=== PATIENT | female | born 1960 | race African-American/Black ===

== ENCOUNTER 2017-06-04 07:47 | Emergency (ER) | payer MEDICARE, MEDICAID ==
[~2017-06-04] VITALS: Ht 167.6 cm; Wt 99.8 kg
[~2017-06-04 07:47] MED LIST: CARV25TA OR; KCL PO; LIPITOR PO; NITR-48 PO; NORCO PO; PLAVIX PO; RAMI5CAP40 PO; XANAX PO
[2017-06-04] MEDS ORDERED: SODIUM CHLORIDE 0.9% 1,000 ML IV ONE (08:34)
[2017-06-04] MEDS ORDERED: ASPirin 325 MG TAB PO ONE (08:45)
[2017-06-04] MEDS ORDERED: NITROGLYCERIN 0.4 MG SL TAB SL ONE (08:45)
[2017-06-04 09:00] VITALS: BP 138/74
[2017-06-04 09:29] LABS: Hematocrit 41.4 % (36.0-46.0); Hemoglobin 13.5 g/dL (12.2-16.2); Mean Corpuscular Hemoglobin 29.4 pg (28.0-32.0); Mean Corpuscular Hgb Conc. 32.5 g/dL (32.0-36.0); Mean Corpuscular Volume 90.4 fL (80.0-100.0); Platelet Count (auto) 168 10^3/uL (140-450); Red Blood Cells 4.58 10^6/uL (4.0-5.20); Red Cell Distribution Width 16.4 % (11.8-14.3); White Blood Cell 9.8 10^3/uL (4.4-10.8)
[2017-06-04] MEDS ORDERED: ONDANSETRON HCL 4 MG/2 ML VIAL IV ONE (09:30)
[2017-06-04] MEDS ORDERED: HYDROcodone-ACET 10/325MG TAB PO ONE (09:30)
[2017-06-04 09:32] LABS: Band Neutrophils % (manual) 0; Basophils % (manual) 0 (0.0-2.0); Blast Cells 0; Eosinophils % (manual) 0 (0-7); Metamyelocytes % 0; Myelocytes % 0; Promyelocytes % 0; Reactive Lymphocytes 0
[2017-06-04 09:34] LABS: Alanine Aminotransferase 30 U/L (13-56); Albumin 3.9 g/dL (3.4-5.0); Alkaline Phosphatase 222 U/L (45-117); Anion Gap 6 (5-15); Aspartate Aminotransferase 25 U/L (15-37); BUN/Creatinine Ratio 12.9; Bilirubin, Total 0.1 mg/dL (0.2-1.0); Blood Urea Nitrogen 11 mg/dL (7-18); Calcium 8.9 mg/dL (8.5-10.1); Carbon Dioxide 27 mmol/L (21-32); Chloride 110 mmol/L (98-107); GFR African American 89 mL/min; GFR Non-African American 74 mL/min; Glucose 81 mg/dL (74-106); Potassium 3.8 mmol/L (3.5-5.1); Sodium 143 mmol/L (136-145)
[2017-06-04 09:53] LABS: Lymphocytes % (manual) 18 (10.0-50.0); Monocytes % (manual) 2 (0-12)
== END 2017-06-04 10:22 | disposition left against medical advice (07) ==
LOC: EDBD 07:47 → ER 07:47
DX: R07.89 Other chest pain (principal); I25.10 Atherosclerotic heart disease of native coronary artery without angina pectoris; I50.9 Heart failure, unspecified; E78.5 Hyperlipidemia, unspecified; F17.210 Nicotine dependence, cigarettes, uncomplicated; I25.2 Old myocardial infarction; Z86.718 Personal history of other venous thrombosis and embolism; Z88.0 Allergy status to penicillin; Z88.6 Allergy status to analgesic agent
CPT/HCPCS: 36415; 71045; 80053; 83880; 84484; 85007; 85027; 93005; 96360; 96361; 96372; 99285; J2405; J7030

== ENCOUNTER 2017-12-08 02:30 | Inpatient (IN) | payer MEDICARE, MEDICAID ==
[~2017-12-08] VITALS: Ht 167.6 cm; Wt 91.0 kg
[2017-12-08] MEDS ORDERED: methylPREDNISolone SOD SUCC 125 MG/2 ML VL ONE (02:48)
[2017-12-08 02:58] LABS: Basophils # (auto) 0.1 uL; Basophils % (auto) 1.2 % (0.0-2.0); Eosinophils # (auto) 0.1 uL; Eosinophils % (auto) 1.1 % (0.0-7.0); Hematocrit 39.7 % (36.0-46.0); Hemoglobin 12.7 g/dL (12.2-16.2); Lymphocytes # (auto) 2.7 uL; Lymphocytes % (auto) 25.3 % (10.0-50.0); Mean Corpuscular Hemoglobin 28.7 pg (28.0-32.0); Mean Corpuscular Hgb Conc. 32.1 g/dL (32.0-36.0); Mean Corpuscular Volume 89.4 fL (80.0-100.0); Monocytes # (auto) 0.8 uL; Monocytes % (auto) 7.5 % (0.0-12.0); Neutrophils # (auto) 6.9 uL; Neutrophils % (auto) 64.9 % (37.0-80.0); Platelet Count (auto) 232 10^3/uL (140-450); Red Blood Cells 4.44 10^6/uL (4.0-5.20); Red Cell Distribution Width 15.7 % (11.8-14.3); White Blood Cell 10.6 10^3/uL (4.4-10.8)
[2017-12-08] MEDS ORDERED: IPRATROPIUM BROM 0.5 MG/2.5ML INH SOL NEB ONE (03:00)
[2017-12-08] MEDS ORDERED: ALBUTEROL SULF 2.5 MG/0.5ML(0.5%) NEB SOLN NEB ONE (03:00)
[2017-12-08] MEDS ORDERED: methylPREDNISolone SOD SUCC 125 MG/2 ML VL IV ONE (03:00)
[2017-12-08 03:13] LABS: INR 0.98 (0.9-1.15); Partial Thromboplastin Time 22.4 sec (23.78-33.04); Prothrombin Time 10.5 sec (9.27-12.13)
[2017-12-08 03:21] LABS: Alanine Aminotransferase 45 U/L (13-56); Albumin 3.7 g/dL (3.4-5.0); Alkaline Phosphatase 210 U/L (45-117); Anion Gap 9 (5-15); Aspartate Aminotransferase 57 U/L (15-37); BUN/Creatinine Ratio 9.1; Bilirubin, Total 0.3 mg/dL (0.2-1.0); Blood Urea Nitrogen 8 mg/dL (7-18); Calcium 8.5 mg/dL (8.5-10.1); Carbon Dioxide 22 mmol/L (21-32); Chloride 113 mmol/L (98-107); GFR African American 85 mL/min; GFR Non-African American 71 mL/min; Glucose 140 mg/dL (74-106); Magnesium 2.4 mg/dL (1.6-2.6); Potassium 3.8 mmol/L (3.5-5.1); Sodium 144 mmol/L (136-145); Total Protein 7.6 g/dL (6.4-8.2)
[2017-12-08] MEDS: FUROSEMIDE 20 MG/2 ML VIAL IV ONE ×2 (04:17→05:05)
[2017-12-08] MEDS ORDERED: MEPERIDINE HCL (25 MG/ML) 1ML VIAL IV ONE (04:30)
[2017-12-08 04:41] LABS: Urine Bacteria FEW /hpf (None Seen); Urine Blood Negative /uL (Negative); Urine Hyaline Cast FEW /lpf (0 - 2); Urine Specific Gravity 1.014 (1.001-1.035); Urine WBC 5 /hpf (0 - 5)
[2017-12-08 04:52] LABS: Alcohol, Urine < 3.0 mg/dL (0-5); Amphetamine Screen, Urine NEGATIVE (NEGATIVE); Barbiturate Scree,Urine NEGATIVE (NEGATIVE); Benzodiazephine Screen, Urine POSITIVE (NEGATIVE); Cannabinoid Screen, Urine NEGATIVE (NEGATIVE); Cocaine Screen, Urine NEGATIVE (NEGATIVE); Opiate Scree,Urine NEGATIVE (NEGATIVE); Phencyclidine Screen, Urine NEGATIVE (NEGATIVE)
[2017-12-08] MEDS ORDERED: LORazepam 2MG/ML-1ML VIAL IV ONE (05:30)
[2017-12-08] MEDS ORDERED: NITROGLYCERIN 0.4 MG SL TAB SL PRN (06:15)
[2017-12-08] MEDS ORDERED: MORPHINE SULFATE 4 MG/ML SYR/VIAL IV PRN (06:15)
[2017-12-08] MEDS ORDERED: ALBUTEROL SULF 2.5 MG/0.5ML(0.5%) NEB SOLN NEB PRN (06:15)
[2017-12-08] MEDS: ONDANSETRON HCL 4 MG/2 ML VIAL IV PRN (07:52)
[2017-12-08 08:59] VITALS: BP 135/72
[2017-12-08 09:28] VITALS: BP 116/70
[2017-12-08 09:30] VITALS: BP 135/72
[2017-12-08] MEDS ORDERED: FUROSEMIDE 20 MG/2 ML VIAL IV SCH (10:00)
[2017-12-08] MEDS: ASPirin 81 mg TAB PO SCH (10:00)
[2017-12-08] MEDS: HYDROcodone-ACET 5/325MG TAB PO PRN ×3 (10:24→18:41)
[2017-12-08] MEDS: CLOPIDOGREL BISULFATE 75 MG TAB PO SCH (10:24)
[2017-12-08] MEDS: ENOXAPARIN SOD 40 MG/0.4 ML SYRINGE SC SCH (10:24)
[2017-12-08] MEDS: FAMOTIDINE 20 MG TAB PO SCH ×2 (10:24→21:28)
[2017-12-08] MEDS: RAMIPRIL 2.5 MG CAP PO SCH (10:26)
[2017-12-08] MEDS: LEVOFLOXACIN 500MG 100 ML IV SCH (10:26)
[2017-12-08] MEDS: CARVEDILOL 12.5 MG TAB PO SCH (10:27)
[2017-12-08 12:00] VITALS: BP 131/72
[2017-12-08] MEDS: ALPRAZolam 0.5 MG TAB PO PRN (14:31)
[2017-12-08] MEDS ORDERED: OPTISON 3ml Vial for INJ IV ONE (16:10)
[2017-12-08 17:00] VITALS: BP 101/64
[2017-12-08] MEDS: ATORVASTATIN 20 MG TAB PO SCH (21:28)
[2017-12-08] MEDS: OXYCODONE W/ ACETAMINOPHEN 5/325MG TABLET PO PRN (21:29)
[2017-12-08 22:00] VITALS: BP 109/57
[2017-12-08] MEDS: TEMAZEPAM 15 MG CAP PO PRN (22:47)
[2017-12-09] MEDS: ACETAMINOPHEN 325 MG TAB PO PRN ×2 (02:34→11:14)
[2017-12-09] MEDS: ALPRAZolam 0.5 MG TAB PO PRN ×2 (02:34→16:01)
[2017-12-09 05:00] VITALS: BP 100/55
[2017-12-09 06:52] LABS: Basophils # (auto) 0.1 uL; Basophils % (auto) 0.3 % (0.0-2.0); Eosinophils # (auto) 0 uL; Hematocrit 39.7 % (36.0-46.0); Hemoglobin 12.5 g/dL (12.2-16.2); Lymphocytes # (auto) 2.2 uL; Lymphocytes % (auto) 12.1 % (10.0-50.0); Mean Corpuscular Hemoglobin 28.3 pg (28.0-32.0); Mean Corpuscular Hgb Conc. 31.6 g/dL (32.0-36.0); Mean Corpuscular Volume 89.6 fL (80.0-100.0); Monocytes # (auto) 1.6 uL; Monocytes % (auto) 8.7 % (0.0-12.0); Neutrophils # (auto) 14.4 uL; Neutrophils % (auto) 78.9 % (37.0-80.0); Platelet Count (auto) 242 10^3/uL (140-450); Red Blood Cells 4.43 10^6/uL (4.0-5.20); Red Cell Distribution Width 16.1 % (11.8-14.3); White Blood Cell 18.2 10^3/uL (4.4-10.8)
[2017-12-09 07:10] LABS: Albumin 3.4 g/dL (3.4-5.0); BUN/Creatinine Ratio 15.5; Bilirubin, Total 0.4 mg/dL (0.2-1.0); Calcium 8.6 mg/dL (8.5-10.1); Potassium 3.8 mmol/L (3.5-5.1); Total Protein 7.5 g/dL (6.4-8.2)
[2017-12-09] MEDS: ASPirin 81 mg TAB PO SCH (08:57)
[2017-12-09 09:00] VITALS: BP 105/52
[2017-12-09] MEDS: LEVOFLOXACIN 500MG 100 ML IV SCH (09:43)
[2017-12-09] MEDS: FUROSEMIDE 20 MG/2 ML VIAL IV SCH (09:43)
[2017-12-09] MEDS: RAMIPRIL 2.5 MG CAP PO SCH (09:43)
[2017-12-09] MEDS: POTASSIUM CHL 20 Meq TABLET PO SCH (09:44)
[2017-12-09] MEDS: FAMOTIDINE 20 MG TAB PO SCH ×2 (09:44→21:49)
[2017-12-09] MEDS: CARVEDILOL 12.5 MG TAB PO SCH (09:44)
[2017-12-09] MEDS: CLOPIDOGREL BISULFATE 75 MG TAB PO SCH (09:44)
[2017-12-09] MEDS: ENOXAPARIN SOD 40 MG/0.4 ML SYRINGE SC SCH (09:45)
[2017-12-09 11:41] VITALS: BP 110/58
[2017-12-09] MEDS: OXYCODONE W/ ACETAMINOPHEN 5/325MG TABLET PO PRN ×2 (11:42→20:52)
[2017-12-09 17:00] VITALS: BP 104/65
[2017-12-09] MEDS: ATORVASTATIN 20 MG TAB PO SCH (21:48)
[2017-12-09 22:00] VITALS: BP 114/85
[2017-12-10] VITALS (7 sets, daily range): BP systolic 89–114; BP diastolic 58–75
[2017-12-10 05:54] LABS: Basophils # (auto) 0.1 uL; Basophils % (auto) 0.8 % (0.0-2.0); Eosinophils # (auto) 0.1 uL; Eosinophils % (auto) 0.5 % (0.0-7.0); Hematocrit 40.1 % (36.0-46.0); Lymphocytes # (auto) 3.5 uL; Lymphocytes % (auto) 32.8 % (10.0-50.0); Mean Corpuscular Hemoglobin 29.5 pg (28.0-32.0); Mean Corpuscular Hgb Conc. 32.5 g/dL (32.0-36.0); Mean Corpuscular Volume 90.9 fL (80.0-100.0); Monocytes # (auto) 1.2 uL; Neutrophils # (auto) 5.9 uL; Neutrophils % (auto) 54.9 % (37.0-80.0); Nucleated Red Blood Cells % 0.2 %; Platelet Count (auto) 224 10^3/uL (140-450); Red Blood Cells 4.41 10^6/uL (4.0-5.20); White Blood Cell 10.8 10^3/uL (4.4-10.8)
[2017-12-10 06:12] LABS: BUN/Creatinine Ratio 23.8; Calcium 8.3 mg/dL (8.5-10.1); Potassium 3.7 mmol/L (3.5-5.1)
[2017-12-10] MEDS ORDERED: LIDOCAINE 2%HCL (LOCAL ANESTH.) INJ 10ml MDV ONE (07:22)
[2017-12-10] MEDS ORDERED: IOHEXOL 350 MG/ML 100ML IJ ONE ×2 (07:22→08:58)
[2017-12-10] MEDS ORDERED: ANGIOMAX 250 MG VIAL IV ONE (08:32)
[2017-12-10] MEDS ORDERED: ATROPINE SULF 1 MG/10ml SYR ONE (08:33)
[2017-12-10] MEDS ORDERED: fentaNYL CITRATE 100 MCG/2 ML VL ONE (08:33)
[2017-12-10] MEDS ORDERED: SODIUM CHL 0.9% 50 ML ONE (08:33)
[2017-12-10] MEDS ORDERED: EPINEPHrine HCL 1 MG/10 ML SYRG ONE (08:33)
[2017-12-10] MEDS ORDERED: MIDAZOLAM HCL 1MG/1ML-2 ML VIAL ONE (08:33)
[2017-12-10] MEDS: OXYCODONE W/ ACETAMINOPHEN 5/325MG TABLET PO PRN (10:12)
[2017-12-10] MEDS: LEVOFLOXACIN 500MG 100 ML IV SCH (10:21)
[2017-12-10] MEDS: CLOPIDOGREL BISULFATE 75 MG TAB PO SCH (10:22)
[2017-12-10] MEDS: ASPirin 81 mg TAB PO SCH (10:22)
[2017-12-10] MEDS: RAMIPRIL 2.5 MG CAP PO SCH (10:22)
[2017-12-10] MEDS: FAMOTIDINE 20 MG TAB PO SCH ×2 (10:22→21:32)
[2017-12-10] MEDS: POTASSIUM CHL 20 Meq TABLET PO SCH (10:22)
[2017-12-10] MEDS: CARVEDILOL 12.5 MG TAB PO SCH (10:23)
[2017-12-10] MEDS: ONDANSETRON HCL 4 MG/2 ML VIAL IV PRN ×2 (10:37→18:13)
[2017-12-10] MEDS: FUROSEMIDE 20 MG/2 ML VIAL IV SCH (10:38)
[2017-12-10] MEDS ORDERED: OXYCODONE W/ ACETAMINOPHEN 5/325MG TABLET PO PRN (11:30)
[2017-12-10] MEDS: MEPERIDINE HCL (25 MG/ML) 1ML VIAL IV PRN ×2 (11:30→21:25)
[2017-12-10] MEDS: ALPRAZolam 0.5 MG TAB PO PRN ×2 (13:43)
[2017-12-10] MEDS: DOCUSATE SOD 100 MG CAP PO SCH (21:32)
[2017-12-10] MEDS: ATORVASTATIN 20 MG TAB PO SCH (21:32)
[2017-12-11] MEDS: TEMAZEPAM 15 MG CAP PO PRN (00:24)
[2017-12-11 05:00] VITALS: BP 115/60
[2017-12-11] MEDS: MEPERIDINE HCL (25 MG/ML) 1ML VIAL IV PRN ×2 (05:18→09:49)
[2017-12-11 07:02] VITALS: BP 115/60
[2017-12-11 09:00] VITALS: BP 112/65
[2017-12-11] MEDS: FAMOTIDINE 20 MG TAB PO SCH (09:43)
[2017-12-11] MEDS: POTASSIUM CHL 20 Meq TABLET PO SCH (09:43)
[2017-12-11] MEDS: DOCUSATE SOD 100 MG CAP PO SCH (09:43)
[2017-12-11] MEDS: ASPirin 81 mg TAB PO SCH (09:43)
[2017-12-11] MEDS: CLOPIDOGREL BISULFATE 75 MG TAB PO SCH (09:43)
[2017-12-11] MEDS ORDERED: CLOP75TA28 PO (09:55)
[2017-12-11] MEDS ORDERED: RAMI5CAP40 PO (09:55)
[2017-12-11] MEDS ORDERED: POTA20TA53 PO (09:55)
[2017-12-11] MEDS ORDERED: ATOR20TA50 PO (09:55)
[2017-12-11] MEDS ORDERED: CAR125T PO (09:55)
[2017-12-11] MEDS ORDERED: FURO40TA PO (09:55)
[2017-12-11] MEDS ORDERED: ASPI81CH43 PO (09:55)
[2017-12-11] MEDS ORDERED: CARVEDILOL 12.5 MG TAB PO SCH (10:00)
[2017-12-11] MEDS ORDERED: FUROSEMIDE 40 MG TAB PO SCH (10:00)
[2017-12-11 13:00] VITALS: BP 110/58
[2017-12-11 13:26] VITALS: BP 112/65
== END 2017-12-11 14:50 | disposition home or self-care (01) | DRG 246 ==
LOC: EDBD 02:30 → ER 02:32 → TELE 02:33 → TELE-WESTW 09:41
PROVIDERS: ADMIT Nurse Practitioner; ATTEND Internal Medicine
PROC: 5A09357 Assistance with Respiratory Ventilation, Less than 24 Consecutive Hours, Continuous Positive Airway Pressure (ICD-10-PCS; 2017-12-08)
PROC: 027034Z Dilation of Coronary Artery, One Artery with Drug-eluting Intraluminal Device, Percutaneous Approach (ICD-10-PCS; principal; 2017-12-10)
PROC: 4A023N7 Measurement of Cardiac Sampling and Pressure, Left Heart, Percutaneous Approach (ICD-10-PCS; 2017-12-10)
PROC: B2111ZZ Fluoroscopy of Multiple Coronary Arteries using Low Osmolar Contrast (ICD-10-PCS; 2017-12-10)
PROC: B2151ZZ Fluoroscopy of Left Heart using Low Osmolar Contrast (ICD-10-PCS; 2017-12-10)
DX: T82.855A Stenosis of coronary artery stent, initial encounter (principal); I50.43 Acute on chronic combined systolic (congestive) and diastolic (congestive) heart failure; J96.00 Acute respiratory failure, unspecified whether with hypoxia or hypercapnia; J44.1 Chronic obstructive pulmonary disease with (acute) exacerbation; N39.0 Urinary tract infection, site not specified; F11.20 Opioid dependence, uncomplicated; I50.82 Biventricular heart failure; I25.10 Atherosclerotic heart disease of native coronary artery without angina pectoris; I11.0 Hypertensive heart disease with heart failure; E66.9 Obesity, unspecified; E78.5 Hyperlipidemia, unspecified; F32.9 Major depressive disorder, single episode, unspecified; Z95.5 Presence of coronary angioplasty implant and graft; F17.210 Nicotine dependence, cigarettes, uncomplicated; F41.9 Anxiety disorder, unspecified; I25.2 Old myocardial infarction; Z83.3 Family history of diabetes mellitus; Y83.1 Surgical operation with implant of artificial internal device as the cause of abnormal reaction of the patient, or of later complication, without mention of misadventure at the time of the procedure; T38.0X5A Adverse effect of glucocorticoids and synthetic analogues, initial encounter; Z95.810 Presence of automatic (implantable) cardiac defibrillator; Z82.49 Family history of ischemic heart disease and other diseases of the circulatory system; M79.7 Fibromyalgia; I25.5 Ischemic cardiomyopathy; G89.4 Chronic pain syndrome; Z80.9 Family history of malignant neoplasm, unspecified; Z88.6 Allergy status to analgesic agent; Z88.0 Allergy status to penicillin; Z79.82 Long term (current) use of aspirin; Z79.899 Other long term (current) drug therapy; Z68.32 Body mass index [BMI] 32.0-32.9, adult; Y92.89 Other specified places as the place of occurrence of the external cause
CPT/HCPCS: 36415; 36600; 71045; 80048; 80053; 80061; 80307; 81001; 82805; 83036; 83735; 83880; 84484; 85025; 85379; 85610; 85730; 87086; 92928; 93005; 93306; 93458; 94640; 94660; 94761; 96365; 96375; 97163; 99152; A6257; C1874; J1956; J2001; J2250; J2405; Q9956

== ENCOUNTER 2018-10-05 13:17 | Inpatient (IN) | payer MEDICARE, MEDICAID | END 2018-10-07 16:12 | disposition still patient (30) | LOC: ER 13:17 → TELE 18:45 → DOU IN ICU 20:50 | DX: I47.2 Ventricular tachycardia (principal); N39.0 Urinary tract infection, site not specified; I50.40 Unspecified combined systolic (congestive) and diastolic (congestive) heart failure; F11.20 Opioid dependence, uncomplicated; I25.5 Ischemic cardiomyopathy; G89.29 Other chronic pain; M54.9 Dorsalgia, unspecified; E78.00 Pure hypercholesterolemia, unspecified; Z79.891 Long term (current) use of opiate analgesic; E66.9 Obesity, unspecified; E78.5 Hyperlipidemia, unspecified; F32.9 Major depressive disorder, single episode, unspecified; F41.9 Anxiety disorder, unspecified; Z79.02 Long term (current) use of antithrombotics/antiplatelets; Z79.82 Long term (current) use of aspirin ==

== ENCOUNTER 2019-02-12 16:27 | Emergency (ER) | payer MEDICARE, MEDICAID ==
[~2019-02-12] VITALS: Ht 167.6 cm; Wt 87.5 kg
[~2019-02-12 16:27] MED LIST changes: +AMIO200T4 PO; +ATOR20TA50 PO; +CAR125T PO; -CARV25TA OR; +CLOP75TA28 PO; +FURO1TAB31 PO; -KCL PO; +MEX150C PO; -NITR-48 PO; -NORCO PO; +PERCOT PO; -PLAVIX PO; +POTA-220 PO
[2019-02-12 17:19] LABS: Basophils # (auto) 0.1 uL; Basophils % (auto) 0.5 % (0.0-2.0); Eosinophils # (auto) 0.1 uL; Eosinophils % (auto) 0.7 % (0.0-7.0); Hematocrit 37.9 % (36.0-46.0); Hemoglobin 12.1 g/dL (12.2-16.2); Lymphocytes # (auto) 2.6 uL; Lymphocytes % (auto) 25.4 % (10.0-50.0); Mean Corpuscular Hemoglobin 28.3 pg (28.0-32.0); Mean Corpuscular Volume 88.4 fL (80.0-100.0); Monocytes % (auto) 9.5 % (0.0-12.0); Neutrophils # (auto) 6.7 uL; Neutrophils % (auto) 63.9 % (37.0-80.0); Platelet Count (auto) 241 10^3/uL (140-450); Red Blood Cells 4.29 10^6/uL (4.0-5.20); Red Cell Distribution Width 19.4 % (11.8-14.3); White Blood Cell 10.4 10^3/uL (4.4-10.8)
[2019-02-12 18:01] LABS: Alanine Aminotransferase 28 U/L (13-56); Anion Gap 10 (5-15); Aspartate Aminotransferase 28 U/L (15-37); BUN/Creatinine Ratio 10.7; Blood Urea Nitrogen 9 mg/dL (7-18); Carbon Dioxide 23 mmol/L (21-32); Chloride 114 mmol/L (98-107); GFR African American 90 mL/min; GFR Non-African American 74 mL/min; Glucose 74 mg/dL (74-106); Potassium 3.3 mmol/L (3.5-5.1); Sodium 147 mmol/L (136-145)
[2019-02-12 18:06] LABS: Alkaline Phosphatase 180 U/L (45-117); Bilirubin, Total 0.3 mg/dL (0.2-1.0); Total Protein 8.1 g/dL (6.4-8.2)
[2019-02-12 21:34] VITALS: BP 132/81
== END 2019-02-12 22:08 | disposition left against medical advice (07) ==
LOC: ER 16:27
DX: R05 Cough (principal); R06.02 Shortness of breath; R20.0 Anesthesia of skin; Z53.21 Procedure and treatment not carried out due to patient leaving prior to being seen by health care provider
CPT/HCPCS: 36415; 70450; 71045; 80053; 83880; 84484; 85025

== ENCOUNTER 2019-12-28 13:15 | Emergency (ER) | payer MEDICARE, MEDICAID ==
[~2019-12-28] VITALS: Ht 167.6 cm; Wt 81.6 kg
[2019-12-28] MEDS ORDERED: SODIUM CHLORIDE 0.9% 1,000 ML IV ONE ×2 (13:19)
[2019-12-28 13:32] VITALS: BP 112/58
[2019-12-28 14:56] LABS: Basophils # (auto) 0 10 ^3/uL (0-0.2); Basophils % (auto) 0.7 % (0.0-2.0); Eosinophils # (auto) 0.2 10 ^3/uL (0-0.8); Eosinophils % (auto) 2.9 % (0.0-7.0); Hematocrit 32.7 % (36.0-46.0); Hemoglobin 10.5 g/dL (12.2-16.2); Lymphocytes # (auto) 2.2 10 ^3/uL (0.4-5.4); Mean Corpuscular Hemoglobin 28.1 pg (28.0-32.0); Mean Corpuscular Hgb Conc. 32.1 g/dL (32.0-36.0); Mean Corpuscular Volume 87.6 fL (80.0-100.0); Monocytes # (auto) 0.9 10 ^3/uL (0-1.3); Monocytes % (auto) 11.8 % (0.0-12.0); Neutrophils % (auto) 54.6 % (37.0-80.0); Nucleated Red Blood Cells % 0.1 %; Platelet Count (auto) 202 10^3/uL (140-450); Red Blood Cells 3.73 10^6/uL (4.0-5.20); Red Cell Distribution Width 18.4 % (11.8-14.3); White Blood Cell 7.3 10^3/uL (4.4-10.8)
[2019-12-28 15:22] LABS: Alanine Aminotransferase 35 U/L (13-56); Albumin 3.6 g/dL (3.4-5.0); Anion Gap 3 (5-15); Aspartate Aminotransferase 31 U/L (15-37); Blood Urea Nitrogen 10 mg/dL (7-18); Calcium 8.7 mg/dL (8.5-10.1); Carbon Dioxide 27 mmol/L (21-32); Chloride 111 mmol/L (98-107); Glucose 97 mg/dL (74-106); Potassium 3.7 mmol/L (3.5-5.1); Sodium 141 mmol/L (136-145)
[2019-12-28 15:27] LABS: Alkaline Phosphatase 167 U/L (45-117); BUN/Creatinine Ratio 13.3; Bilirubin, Total 0.3 mg/dL (0.2-1.0); GFR African American 102 mL/min; GFR Non-African American 84 mL/min
[2019-12-28 16:13] LABS: Urine Bacteria NONE SEEN /hpf (None Seen); Urine WBC <1 /hpf (0 - 5)
[2019-12-28 16:16] LABS: Urine Blood Negative /uL (Negative)
== END 2019-12-28 16:03 | disposition home or self-care (01) ==
LOC: ER 13:15 → EDBD 13:15 → ER 16:03
DX: E86.0 Dehydration (principal); I25.10 Atherosclerotic heart disease of native coronary artery without angina pectoris; I11.0 Hypertensive heart disease with heart failure; I50.9 Heart failure, unspecified; E78.5 Hyperlipidemia, unspecified; I25.2 Old myocardial infarction; F17.210 Nicotine dependence, cigarettes, uncomplicated; Z88.6 Allergy status to analgesic agent; Z88.0 Allergy status to penicillin
CPT/HCPCS: 36415; 70450; 80053; 81001; 84484; 85025; 93005

== ENCOUNTER 2020-11-15 14:47 | Emergency (ER) | payer MEDICARE, MEDICAID ==
[2020-11-15 15:03] VITALS: BP 117/78
== END 2020-11-15 16:54 | disposition home or self-care (01) ==
LOC: ER 14:47 → EDBD 14:47 → ER 16:54
DX: R07.89 Other chest pain (principal); M54.2 Cervicalgia; I11.0 Hypertensive heart disease with heart failure; I50.9 Heart failure, unspecified; I25.10 Atherosclerotic heart disease of native coronary artery without angina pectoris; I25.2 Old myocardial infarction; E78.5 Hyperlipidemia, unspecified; F17.210 Nicotine dependence, cigarettes, uncomplicated; Z95.0 Presence of cardiac pacemaker; Z79.01 Long term (current) use of anticoagulants; Z79.899 Other long term (current) drug therapy; Z88.0 Allergy status to penicillin; Z88.8 Allergy status to other drugs, medicaments and biological substances; V49.9XXA Car occupant (driver) (passenger) injured in unspecified traffic accident, initial encounter; Y93.89 Activity, other specified; Y92.410 Unspecified street and highway as the place of occurrence of the external cause; Y99.8 Other external cause status
CPT/HCPCS: 70450; 71045; 72100; 72125; 93005